=== PATIENT | female | born 1995 | race American Indian/Alaskan Native ===

== ENCOUNTER 2017-06-05 16:35 | Outpatient (CLI) | payer OTHER, MEDICAID ==
[2017-06-05] MEDS ORDERED: LACTATED RINGERS 500 ML IV ONE (17:00)
[2017-06-05 17:04] VITALS: BP 114/67
[2017-06-05 17:13] LABS: Bacteria,Urine 1+ /HPF (Negative); Bilirubin,Urine NEG (Negative); Blood,Urine NEG (Negative); Color,Urine Yellow (Yellow); Mucus,Urine FEW /HPF; Nitrite,Urine NEG (Negative); Protein,Urine <15 mg/dL mg/dL (Negative); Urobilinogen,Urine < 2.0 mg/dL (<2.0)
== END 2017-06-05 19:13 | disposition home or self-care (01) ==
LOC: TRG 16:35
PROVIDERS: ATTEND Obstetrics & Gynecology
DX: O47.02 False labor before 37 completed weeks of gestation, second trimester (principal); Z3A.26 26 weeks gestation of pregnancy
CPT/HCPCS: 59025; 81001; 96360; J7120